=== PATIENT | female | born 1935 | race Caucasian/White ===

== ENCOUNTER 2017-10-27 10:35 | Emergency (ER) | payer OTHER, MEDICAID ==
[~2017-10-27] VITALS: Ht 152.4 cm; Wt 49.4 kg
[2017-10-27 10:42] VITALS: Ht 152.4 cm; Wt 49.4 kg
[2017-10-27 11:52] VITALS: BP 140/71
== END 2017-10-27 12:25 | disposition home or self-care (01) ==
LOC: ED 10:35
DX: S62.101A Fracture of unspecified carpal bone, right wrist, initial encounter for closed fracture (principal); I10 Essential (primary) hypertension; E78.00 Pure hypercholesterolemia, unspecified; F03.90 Unspecified dementia, unspecified severity, without behavioral disturbance, psychotic disturbance, mood disturbance, and anxiety; W01.0XXA Fall on same level from slipping, tripping and stumbling without subsequent striking against object, initial encounter; Y93.89 Activity, other specified; Y92.89 Other specified places as the place of occurrence of the external cause; Y99.8 Other external cause status
CPT/HCPCS: J3010; Q0092

== ENCOUNTER 2019-01-16 18:12 | Inpatient (IN) | payer OTHER, MEDICAID ==
[~2019-01-16] VITALS: Ht 160 cm; Wt 49.9 kg
[2019-01-16 19:20] LABS: BASOPHIL % 0.4 % (0-2); PLATELET COUNT 244 x10^3mcL (130-400); RED CELL DISTRIBUTION WIDTH 14.5 % (11.5-14.5)
[2019-01-16 19:44] LABS: CALCIUM 8.9 mg/dL (8.5-10.1); CARBON DIOXIDE 27.6 mmol/L (21-32); CHLORIDE SERUM 111 mmol/L (98-107); CREATININE SERUM 0.8 mg/dL (0.6-1.0); GLUCOSE SERUM 98 mg/dL (74-106); POTASSIUM SERUM 3.2 mmol/L (3.5-5.1); SODIUM SERUM 146 mmol/L (136-145)
[2019-01-16 19:56] LABS: ALKALINE PHOSPHATASE 45 U/L (46-116); AST/SGOT 16 U/L (15-37); BILIRUBIN TOTAL 0.3 mg/dL (0.20-1.00); HDL CHOLESTEROL 45 mg/dL (40-60); LIPASE 230 IU/L (73-393); MAGNESIUM 2.1 mg/dL (1.8-2.4); T4(THYROXINE) 5.8 ug/dL (4.7-13.3)
[2019-01-16 19:57] LABS: ALBUMIN 2.6 g/dL (3.4-5.0); CHOLESTEROL 113 mg/dL (<200)
[2019-01-16 20:35] LABS: ALT/SGPT 10 U/L (14-59)
[2019-01-16 21:49] LABS: UA SPECIFIC GRAVITY <=1.005 (1.005-1.035); microscopic required? YES; urine erythrocyte NEGATIVE (NEGATIVE)
[2019-01-16] MEDS ORDERED: ALENDRONATE SOD70 M3 PO (23:24)
[2019-01-16] MEDS ORDERED: GOOD SENSE ASPI81 M3 PO (23:24)
[2019-01-16] MEDS ORDERED: CARVEDILOL6.25 M1 PO (23:24)
[2019-01-16] MEDS ORDERED: D3-50001 TAB PO (23:24)
[2019-01-16] MEDS ORDERED: ZOLOFT50 MG PO (23:25)
[2019-01-16] MEDS ORDERED: MICARDIS80 MG PO (23:25)
[2019-01-16] MEDS ORDERED: SIMVASTATIN20 M1 PO (23:25)
[2019-01-16] MEDS ORDERED: ALLEGRA ALLERG180 M1 PO (23:25)
[2019-01-16] MEDS ORDERED: SIN25100 PO (23:26)
[2019-01-16] MEDS ORDERED: [UNRECOGNIZED DRUG - OTHER] PO (23:26)
[2019-01-16] MEDS ORDERED: ARICEPT5 MG PO (23:26)
[2019-01-16 23:54] VITALS: BP 173/75
[2019-01-17] VITALS (8 sets, daily range): BP systolic 135–176; BP diastolic 63–72; Ht 160 cm; Wt 49.9 kg
[2019-01-17 00:08] LABS: CHOLESTEROL/HDL RATIO 2.4
[2019-01-17] MEDS ORDERED: DOCUSATE SODIU250 MG PO (00:18)
[2019-01-17 07:48] LABS: CALCIUM 8.3 mg/dL (8.5-10.1); CARBON DIOXIDE 22.9 mmol/L (21-32); CHLORIDE SERUM 112 mmol/L (98-107); CREATININE SERUM 0.8 mg/dL (0.6-1.0); GLUCOSE SERUM 115 mg/dL (74-106); POTASSIUM SERUM 3.4 mmol/L (3.5-5.1); SODIUM SERUM 145 mmol/L (136-145)
[2019-01-17 07:51] LABS: BASOPHIL % 0.1 % (0-2); PLATELET COUNT 232 x10^3mcL (130-400); RED CELL DISTRIBUTION WIDTH 14.4 % (11.5-14.5)
[2019-01-18 05:43] VITALS: BP 186/80
[2019-01-18 06:15] LABS: PLATELET COUNT 221 x10^3mcL (130-400); RED CELL DISTRIBUTION WIDTH 14.5 % (11.5-14.5)
[2019-01-18 06:27] LABS: CARBON DIOXIDE 20.8 mmol/L (21-32); CHLORIDE SERUM 111 mmol/L (98-107); CREATININE SERUM 0.9 mg/dL (0.6-1.0); GLUCOSE SERUM 138 mg/dL (74-106); MAGNESIUM 2.2 mg/dL (1.8-2.4); PHOSPHOROUS 2.5 mg/dL (2.5-4.9); POTASSIUM SERUM 4.1 mmol/L (3.5-5.1); SODIUM SERUM 141 mmol/L (136-145)
[2019-01-18 06:28] LABS: BASOPHIL % 0 % (0-2)
[2019-01-18 09:12] VITALS: BP 183/85
[2019-01-18 11:57] VITALS: BP 149/60
[2019-01-18 16:28] VITALS: BP 169/77
[2019-01-18 20:45] VITALS: BP 164/75
[2019-01-19 05:42] VITALS: BP 189/90
[2019-01-19 07:19] LABS: PLATELET COUNT 221 x10^3mcL (130-400)
[2019-01-19 07:23] LABS: RED CELL DISTRIBUTION WIDTH 14.7 % (11.5-14.5)
[2019-01-19 07:24] LABS: BASOPHIL % 0 % (0-2)
[2019-01-19 07:45] LABS: CALCIUM 8.5 mg/dL (8.5-10.1); CARBON DIOXIDE 25.1 mmol/L (21-32); CHLORIDE SERUM 109 mmol/L (98-107); CREATININE SERUM 0.9 mg/dL (0.6-1.0); GLUCOSE SERUM 134 mg/dL (74-106); POTASSIUM SERUM 4.2 mmol/L (3.5-5.1); SODIUM SERUM 142 mmol/L (136-145)
[2019-01-19 09:02] VITALS: BP 182/94
[2019-01-19] MEDS ORDERED: ZIT250 PO (09:48)
[2019-01-19 12:30] VITALS: BP 179/78
[2019-01-19 16:38] VITALS: BP 159/75
[2019-01-19 17:00] VITALS: BP 159/75
== END 2019-01-19 18:04 | disposition home health service (06) | DRG 178 ==
LOC: ED 18:12 → DU 23:13
PROVIDERS: Emergency Medicine; Internal Medicine; ADMIT General Practice
DX: J69.0 Pneumonitis due to inhalation of food and vomit (principal); J44.1 Chronic obstructive pulmonary disease with (acute) exacerbation; E87.3 Alkalosis; N39.0 Urinary tract infection, site not specified; E87.0 Hyperosmolality and hypernatremia; E44.0 Moderate protein-calorie malnutrition; Z68.1 Body mass index [BMI] 19.9 or less, adult; E87.6 Hypokalemia; R13.10 Dysphagia, unspecified; G20 Parkinson's disease; F02.80 Dementia in other diseases classified elsewhere, unspecified severity, without behavioral disturbance, psychotic disturbance, mood disturbance, and anxiety; I10 Essential (primary) hypertension; E78.00 Pure hypercholesterolemia, unspecified; Z79.82 Long term (current) use of aspirin; Z87.891 Personal history of nicotine dependence
CPT/HCPCS: 36600; 82962; 83880; 92526-GN; 92610-GN; 94150; 97110-GP; 97116-GP; 97530-GP; C9113; G0378; J1956; J2543; J2920; J2930; J3475; J7030; J7613; J7620; J7644; Q0092

== ENCOUNTER 2019-10-29 19:22 | Emergency (ER) | payer OTHER, MEDICAID ==
[~2019-10-29] VITALS: Ht 160 cm; Wt 49.9 kg
[~2019-10-29 19:22] MED LIST: ALENDRONATE SOD70 M3 PO; ALLEGRA ALLERG180 M1 PO; ARICEPT5 MG PO; CARVEDILOL6.25 M1 PO; D3-50001 TAB PO; DOCUSATE SODIU250 MG PO; GOOD SENSE ASPI81 M3 PO; MICARDIS80 MG PO; SIMVASTATIN20 M1 PO; SIN25100 PO; ZIT250 PO; ZOLOFT50 MG PO; [UNRECOGNIZED DRUG - OTHER] PO
[2019-10-29 19:28] VITALS: Ht 160 cm; Wt 49.9 kg
[2019-10-29 20:23] LABS: BASOPHIL % 0.5 % (0-2); PLATELET COUNT 193 x10^3mcL (130-400); RED CELL DISTRIBUTION WIDTH 14.8 % (11.5-14.5)
[2019-10-29 20:42] LABS: CALCIUM 9.6 mg/dL (8.5-10.1); CHLORIDE SERUM 109 mmol/L (98-107); GLUCOSE SERUM 148 mg/dL (74-106); POTASSIUM SERUM 3.8 mmol/L (3.5-5.1); SODIUM SERUM 143 mmol/L (136-145)
[2019-10-29 20:47] LABS: microscopic required? NO
[2019-10-29 20:48] LABS: ALKALINE PHOSPHATASE 40 U/L (46-116); ALT/SGPT 10 U/L (14-59); AST/SGOT 18 U/L (15-37); BILIRUBIN TOTAL 0.3 mg/dL (0.20-1.00)
[2019-10-29 20:51] LABS: ALBUMIN 2.6 g/dL (3.4-5.0); TOTAL PROTEIN, SERUM 5.5 g/dL (6.4-8.2)
[2019-10-29 21:01] LABS: urine erythrocyte NEGATIVE (NEGATIVE)
[2019-10-29 21:46] VITALS: BP 161/76
== END 2019-10-29 21:45 | disposition home or self-care (01) ==
LOC: ED 19:22
PROVIDERS: Emergency Medicine
DX: R41.82 Altered mental status, unspecified (principal); I10 Essential (primary) hypertension; E78.00 Pure hypercholesterolemia, unspecified
CPT/HCPCS: 82962; Q0092